=== PATIENT | male | born 1990 | race Caucasian/White ===

== ENCOUNTER 2019-04-18 06:58 | Emergency (ER) | payer MEDICAID ==
[2019-04-18 07:10] VITALS: BP 159/79; PULSE 46; O2SAT 99
--- NOTE | 2019-04-18 07:27 | ERPHSYRPT ---
- History of Present Illness Time Seen by Provider: 04/18/19 07:10 Source: patient Exam Limitations: no limitations Patient Subjective Stated Complaint: Pt c/o of pain in the right side of mouth due to a bad tooth on top and bottom, pain for approx 1.5 weeks but has gotten worse in the past couple of days, has not contacted a dentist due to no insurance and is waiting on his tax check Triage Nursing Assessment: pt came to ER alone, hypertensive, bradycardic that the pt reports is normal, cavities, no other issues at this time Physician History: This is a 29-year-old male who has had over a week of right upper and lower dental pain. Patient does not have insurance and does not have the money to see a dentist at this time. He has been using ibuprofen. There is not much benefit with ibuprofen. Timing/Duration: gradual onset, weeks (Over a week) Severity: moderate ENT Location: dental Prearrival Treatment: over the counter meds Modifying Factors: Improves With: activity Associated Symptoms: jaw pain (Right side) Allergies/Adverse Reactions: Penicillins Allergy (Verified 04/18/19 07:10) - Review of Systems Constitutional: No Symptoms Eyes: No Symptoms Ears, Nose, & Throat: Other (Upper and lower molar dental pain on the right side ) Respiratory: No Symptoms Cardiac: No Symptoms Abdominal/Gastrointestinal: No Symptoms Genitourinary Symptoms: No Symptoms Musculoskeletal: No Symptoms Skin: No Symptoms Neurological: No Symptoms Psychological: No Symptoms Endocrine: No Symptoms Hematologic/Lymphatic: No Symptoms Immunological/Allergic: No Symptoms All Other Systems: Reviewed and Negative - Past Medical History Pertinent Past Medical History: No Neurological History: No Pertinent History ENT History: No Pertinent History Cardiac History: No Pertinent History Respiratory History: No Pertinent History Endocrine Medical History: No Pertinent History Musculoskeletal History: No Pertinent History GI Medical History: No Pertinent History History: No Pertinent History Psycho-Social History: No Pertinent History Male Reproductive Disorders: No Pertinent History - Past Surgical History Past Surgical History: Yes Neuro Surgical History: No Pertinent History Cardiac: No Pertinent History Respiratory: No Pertinent History Gastrointestinal: Hernia Repair Genitourinary: No Pertinent History Musculoskeletal: No Pertinent History Male Surgical History: No Pertinent History - Social History Smoking Status: Current every day smoker Exposure to second hand smoke: Yes Drug Use: none Patient Lives Alone: Yes - Nursing Vital Signs Nursing Vital Signs: Initial Vital Signs Temperature 98.0 F 04/18/19 07:03 Pulse Rate 46 L 04/18/19 07:03 Blood Pressure 159/79 04/18/19 07:03 O2 Sat by Pulse Oximetry 99 04/18/19 07:03 Pain Scale Pain Intensity 7 - Physical Exam General Appearance: no apparent distress, alert, anxiety Eye Exam: bilateral eye: normal inspection, PERRL, EOMI Ear Exam: bilateral ear: auricle normal Nasal Exam: normal inspection Throat Exam: pharynx normal, dental tenderness (Right side back molars with multiple fractions. No abscess present. Pain present on both upper and lower molar regions) Neck Exam: normal inspection, non-tender, supple, full range of motion, No trachea midline, No lymphadenopathy (R), No lymphadenopathy (L) Cardiovascular/Respiratory Exam: chest non-tender Abdominal Exam: non-tender Neurologic Exam: alert, oriented x 3, cooperative, cardiopulmonary technician and eeg tech II-XII nml as tested, normal mood/affect, nml cerebellar function, nml station & gait Skin Exam: normal color, warm, dry SpO2 Interpretation: normal SpO2: 99 O2 Delivery: Room Air - Course Nursing assessment & vital signs reviewed: Yes - Progress Progress: unchanged Counseled pt/family regarding: diagnosis, need for follow-up - Departure Departure Disposition: Home Clinical Impression: Dental infection, Fractured tooth Condition: Stable Critical Care Time: No Additional Instructions: Follow-up with dentist for definitive care. Continue ibuprofen 600 mg orally with food 3 times a day. Prescriptions: Oxycodone HCl/Acetaminophen [Percocet 5-325 mg Tablet] 1 each PO Q8H PRN PRN #6 tablet MDD 3 PRN Reason: Pain Clindamycin HCl 150 mg [Cleocin 150 mg Capsule] 2 cap PO QID #56 capsule
[2019-04-18] MEDS ORDERED: CLEOCIN 150 MG CAPSULE PO ONE (07:28)
[2019-04-18] MEDS ORDERED: PERCOCET TABLET 5/325MG PO STA (07:28)
[2019-04-18] MEDS ORDERED: PERCOCET TABLET 5/325MG ONE (07:34)
[2019-04-18] MEDS ORDERED: CLEOCIN 150 MG CAPSULE ONE (07:34)
== END 2019-04-18 07:40 | disposition home or self-care (01) ==
LOC: ED 06:58
DX: K08.9 Disorder of teeth and supporting structures, unspecified (principal); S02.5XXA Fracture of tooth (traumatic), initial encounter for closed fracture
CPT/HCPCS: 99283; A9270-GY